=== PATIENT | female | born 1940 | race Caucasian/White ===

== ENCOUNTER 2018-01-19 08:05 | Emergency (ER) | payer OTHER, BC ==
[2018-01-19 08:10] VITALS: BP 136/84
--- NOTE | 2018-01-19 08:18 | EDPHY ---
H & P Stated Complaint: Fell while walking, injury to face. Time Seen by Provider: 01/19/18 08:11 HPI/ROS: CHIEF COMPLAINT: Mechanical fall, headache, nasal injury, anticoagulated HISTORY OF PRESENT ILLNESS: The patient presents to the ED after she sustained a mechanical fall walking out of her gym today. The patient fell forward. She was able to brace her fall with her elbows but unfortunately struck her nose and head. She denies any loss of consciousness. She does complain of a mild frontal headache, nasal tenderness, swelling and slight deformity. The patient denies any associated neck pain, numbness, weakness, abdominal pain, difficulty breathing or additional traumatic complaints. The patient is anticoagulated for a hypercoagulable state. REVIEW OF SYSTEMS: A comprehensive 10 point review of systems is otherwise negative aside from elements mentioned in the history of present illness. Source: Patient Exam Limitations: No limitations - Personal History Current Tetanus Diphtheria and Acellular Pertussis (TDAP): Yes - Medical/Surgical History Hx Asthma: No Hx Chronic Respiratory Disease: No Hx Diabetes: No Hx Cardiac Disease: No Hx Renal Disease: No Hx Cirrhosis: No Hx Alcoholism: No Hx HIV/AIDS: No Hx Splenectomy or Spleen Trauma: No Other PMH: Protein blood defficiency, on coumadin. Vertigo. - Social History Smoking Status: Never smoked - Physical Exam Exam: General Appearance: Alert, no distress Head: Ecchymosis, tenderness and swelling noted to nasal bridge Eyes: Pupils equal, round, reactive ENT, Mouth: No hemotympanum, no oral trauma Neck: Nontender, trachea midline Respiratory: No chest wall tender, no subcutaneous air, lungs clear bilaterally Cardiovascular: Regular rate and rhythm Abdomen: Abdomen is soft and nontender, pelvis stable Skin: No lacerations, No abrasion Back: No midline T/L/S pain Extremities: Nontender, full range of motion Neurological: A&Ox3, normal motor function, normal sensory exam Constitutional: Initial Vital Signs Temperature (C) 36.6 C 01/19/18 08:06 Heart Rate 75 01/19/18 08:06 Respiratory Rate 18 01/19/18 08:06 Blood Pressure 136/84 H 01/19/18 08:06 O2 Sat (%) 96 01/19/18 08:06 O2 Delivery Mode Room Air Allergies/Adverse Reactions: Sulfa (Sulfonamide Antibiotics) Allergy (Verified 01/19/18 08:10) Home Medications: Medication Instructions Recorded Coumadin 01/19/18 Medical Decision Making - Diagnostics Imaging Results: Imaging Impressions Head CT 01/19/18 08:15 Impression: Bilateral nasal fractures. Normal brain parenchyma without evidence for hemorrhage. Results called to Dr. Gary Caballero at 8:55 AM. General information for patients regarding this examination can be found at [email or web address] If you have questions or comments about this report, please contact me at (hospital) or [phone] (cell). ED Course/Re-evaluation: I have cleared the patient's C-spine via nexus criteria. The patient presents to the ED with an obvious nasal fracture. There is no septal hematoma. Given the patient's age, complaints of headache and current anticoagulation status a CT scan of the head was ordered. CT scan demonstrates no evidence of intracranial hemorrhage or significant facial bone fracture. She does have a nasal fracture. The patient will be discharged home with instructions to follow up with our on- call Ear Nose Throat physician. She is also advised to return to the ED for the development of any severe headache, neurologic symptoms, vomiting or other concerns. Differential Diagnosis: Differential diagnosis considered includes intracranial hemorrhage, facial bone fracture, nasal fracture, spinal injury Departure - Departure Disposition: Home, Routine, Self-Care Clinical Impression: Nasal fracture, Fall, Facial contusion, Anticoagulated Condition: Good Instructions: Nasal Fracture (ED) Additional Instructions: 1. Your head CT scan demonstrates no evidence of intracranial bleeding but does demonstrate a nasal fracture. 2. Return to the ED for any severe headache, numbness, weakness, vomiting or other concerns. 3. Please schedule a follow-up appointment with Dr. Nathalia Larson from ENT for evaluation of your nasal fracture. Please contact her office today to schedule that follow-up visit for next week. Referrals: Giselle Adame MD [Primary Care Provider] - As per Instructions Nathalia Larson MD [Medical Doctor] - As per Instructions
== END 2018-01-19 09:12 | disposition home or self-care (01) ==
DX: S02.2XXA Fracture of nasal bones, initial encounter for closed fracture (principal); S00.83XA Contusion of other part of head, initial encounter; W18.39XA Other fall on same level, initial encounter; Y92.59 Other trade areas as the place of occurrence of the external cause; Z79.01 Long term (current) use of anticoagulants

== ENCOUNTER 2018-04-11 02:28 | Observation (INO) | payer OTHER, BC ==
[2018-04-11] MEDS ORDERED: ONDANSETRON 4 MG/2 ML VIAL IVP ONE ×2 (02:38→04:03)
[2018-04-11] MEDS ORDERED: NS 1,000 ML IV ONE ×2 (02:38→04:28)
--- NOTE | 2018-04-11 02:47 | EDPHY ---
H & P Stated Complaint: NV-abd pain Time Seen by Provider: 04/11/18 02:45 HPI/ROS: HPI CHIEF COMPLAINT: Nausea, vomiting, abdominal pain. HISTORY OF PRESENT ILLNESS: 77-year-old female, history of protein S deficiency on Coumadin, presents emergency room with nausea vomiting and abdominal cramping without diarrhea that started around 10:00 p.m.. She vomited multiple times. Nonbloody. Patient denies any chest pain or shortness of breath. Main complaint abdominal cramps with nausea and vomiting. Addition complains of a frontal throbbing headache she states started after she vomited multiple times. No fever. She had the same meal with her and daughter. They are not sick. She drove back from [employer] but [employer] arriving back home around 9:00 p.m. Around 10:00 p.m. She got sick. Is now 245 in the morning and she arrives to the emergency room with ongoing nausea vomiting. Past Medical History: Protein S deficiency on Coumadin Past Surgical History: Denies recent surgery Social History: Denies drugs alcohol tobacco. Family History: Noncontributory ROS REVIEW OF SYSTEMS: 10 Systems were reviewed and negative with the exception of the elements mentioned in the history of present illness. Exam Constitutional elderly, nontoxic, actively vomiting, triage nursing summary reviewed, vital signs reviewed, awake/alert. Eyes normal conjunctivae and sclera, EOMI, PERRLA. HENT normal inspection, atraumatic, moist mucus membranes, no epistaxis, neck supple/ no meningismus, no raccoon eyes. Respiratory clear to auscultation bilaterally, normal breath sounds, no respiratory distress, no wheezing. Cardiovascular rate normal, regular rhythm, no murmur, no edema, distal pulses normal. Gastrointestinal actively vomiting, soft, non-tender, no rebound, no guarding, normal bowel sounds, no distension, no pulsatile mass. Genitourinary no CVA tenderness. Musculoskeletal no midline vertebral tenderness, full range of motion, no calf swelling, no tenderness of extremities, no meningismus, good pulses, neurovascularly intact. Skin pink, warm, & dry, no rash, skin atraumatic. Neurologic awake, alert and oriented x 3, AAOx3, moves all 4 extremities equally, motor intact, sensory intact, CN II-XII intact, normal cerebellar, normal vision, normal speech. Psychiatric normal mood/affect. Heme/Lymph/Immune no lymphadenopathy. Differential Diagnosis: Differential diagnosis includes but is not limited to and in no particular order: Bowel obstruction, appendicitis, gallbladder disease, diverticulitis, colitis, enteritis, perforated viscus, gastritis, GERD , esophagitis, urinary tract infection, pyelonephritis, kidney stones Medical Decision Making: Plan for this patient IV establishment IV fluid bolus , Zofran for nausea, basic blood work, lactic acid, troponin, EKG. Re-evaluate. Re-evaluation: EKG interpretation by me on record in [facility] system. Impression time of EKG 3:34 a.m., sinus rhythm rate of 69 T-wave abnormality V1 V2 otherwise no acute ischemic change. CT scan head without contrast negative for acute bleed called to me by Dr. Brown. Indication for CT scan vomiting and headache. CT scan abdomen pelvis with IV contrast shows gallbladder wall fluid, and gallstones but otherwise no bowel obstruction or free fluid. Ultrasound shows gallstones, CBD is normal in size. Gallbladder wall is thickened at 3 mm. No sonographic Childers sign. Dr. Dumont consult with the hospitalist service for admission. Reason for admission nausea and vomiting. Source: Patient - Personal History Current Tetanus Diphtheria and Acellular Pertussis (TDAP): Yes - Medical/Surgical History Hx Asthma: No Hx Chronic Respiratory Disease: No Hx Diabetes: No Hx Cardiac Disease: No Hx Renal Disease: No Hx Cirrhosis: No Hx Alcoholism: No Hx HIV/AIDS: No Hx Splenectomy or Spleen Trauma: No Other PMH: Protein blood defficiency, on coumadin. Vertigo. - Social History Smoking Status: Never smoked Constitutional: Initial Vital Signs Temperature (C) 36.5 C 04/11/18 02:36 Heart Rate 83 04/11/18 02:36 Respiratory Rate 16 04/11/18 02:36 Blood Pressure 164/81 H 04/11/18 02:36 O2 Sat (%) 98 04/11/18 02:36 O2 Delivery Mode Room Air Allergies/Adverse Reactions: Sulfa (Sulfonamide Antibiotics) Allergy (Verified 04/11/18 08:18) Rash Home Medications: Medication Instructions Recorded Warfarin Sodium [Coumadin 5MG (*)] 5 mg PO SUMOTUTHFRSA@21 01/19/18 Acetaminophen [Tylenol ES 500 mg 500 mg PO Q6 PRN 04/11/18 (*)] Rosuvastatin Calcium [Crestor] 2.5 mg PO HS 04/11/18 Warfarin Sodium [Coumadin 2.5MG 2.5 mg PO WE@21 04/11/18 (*)] Medical Decision Making - Diagnostics Imaging Results: Imaging Impressions Abdomen CT 04/11/18 03:24 Impression: 1. Cholelithiasis with minimal pericholecystic fluid. 2. Constipation without bowel obstruction or diverticulitis. 3. 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 4. Small hiatal hernia. 5. 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 Findings and recommendations discussed with Emergency Department physician, Randell Coats MD, at 0425 hours, 04/11/2018. Final report concurs with initial preliminary interpretation. Head CT 04/11/18 03:24 Impression: 1. Moderate atrophy. 2. No acute hemorrhage, hydrocephalus, or mass effect. 3. No sinusitis. 4. No definite acute infarct. 5. Moderate microvascular ischemic gliosis. 6. Consider MRI of the brain, if there is continued clinical concern. Findings and recommendations discussed with Emergency Department physician, Randell Coats MD, at 0420 hours, 04/11/2018. Final report concurs with initial preliminary interpretation. Abdomen Ultrasound 04/11/18 05:14 Impression: 1. Cholelithiasis with a few small gallstones, mild borderline gallbladder wall thickening of 3 mm, and minimal pericholecystic fluid. Please correlate for acute versus chronic cholecystitis. 2. No biliary ductal dilation. Findings and recommendations discussed with Emergency Department physician, Randell Coats MD, at 0600 hours, 04/11/2018. Final report concurs with initial preliminary interpretation. - Data Points Laboratory Results: Laboratory Results 04/11/18 02:40 04/11/18 02:40 Medications Given: Discontinued Medications Acetaminophen (Tylenol) 1,000 mg PO EDNOW ONE Stop: 04/11/18 04:39 Last Admin: 04/11/18 04:40 Dose: 1,000 mg Sodium Chloride (Ns) 1,000 mls @ 0 mls/hr IV EDNOW ONE; Wide Open PRN Reason: Protocol Stop: 04/11/18 02:39 Last Admin: 04/11/18 02:47 Dose: 1,000 mls Sodium Chloride (Ns) 1,000 mls @ 0 mls/hr IV EDNOW ONE; Wide Open PRN Reason: Protocol Stop: 04/11/18 04:29 Last Admin: 04/11/18 04:29 Dose: 1,000 mls Sodium Chloride (Ns) 1,000 mls @ 125 mls/hr IV CONT CHARLEE Stop: 10/08/18 07:59 Last Admin: 04/11/18 09:26 Dose: 1,000 mls Ondansetron HCl (Zofran) 4 mg IVP EDNOW ONE Stop: 04/11/18 02:39 Last Admin: 04/11/18 02:47 Dose: 4 mg Ondansetron HCl (Zofran) 4 mg IVP EDNOW ONE Stop: 04/11/18 04:04 Last Admin: 04/11/18 04:05 Dose: 4 mg Promethazine HCl (Phenergan) 6.25 mg IVP ONCE ONE Stop: 04/11/18 05:16 Last Admin: 04/11/18 05:55 Dose: 6.25 mg Point of Care Test Results: Chemistry 04/11/18 03:02 POC Troponin I 0.00 ng/mL ng/mL (0.00-0.08) Departure - Departure Disposition: [facility] Clinical Impression: Vomiting Qualifiers: Vomiting type: unspecified Vomiting Intractability: non-intractable Nausea presence: with nausea Qualified Code(s): R11.2 - Nausea with vomiting, unspecified Condition: Fair
[2018-04-11 02:53] LABS: PLATELET COUNT 202 10^3/uL (150-400)
[2018-04-11 03:01] LABS: INR 2.25 (0.83-1.16); PROTIME(PATIENT) 24.9 SEC (12.0-15.0)
[2018-04-11] MEDS ORDERED: IOPAMIDOL (ISOVUE 370) 100 ML BTL IV ONE (03:26)
[2018-04-11] MEDS ORDERED: ACETAMINOPHEN 500 MG TAB PO ONE (04:38)
[2018-04-11] MEDS ORDERED: PROMETHAZINE HCL 25 MG/ML INJ IVP ONE (05:15)
[2018-04-11] MEDS ORDERED: PROMETHAZINE HCL 25 MG/ML INJ IVP PRN (07:56)
[2018-04-11] MEDS ORDERED: ONDANSETRON 4 MG/2 ML VIAL IVP PRN (07:56)
[2018-04-11] MEDS ORDERED: ONDANSETRON DISINTEGRATING 4 MG TAB PO PRN (07:56)
[2018-04-11] MEDS ORDERED: ACETAMINOPHEN 325 MG TAB PO PRN (07:56)
[2018-04-11] MEDS ORDERED: NS 1,000 ML IV SCH (08:00)
--- NOTE | 2018-04-11 08:52 | GHP ---
DATE OF ADMISSION: 04/11/2018 The patient is a 77-year-old female with a history of protein S deficiency on chronic warfarin, who p resents with vomiting. She was in her usual state of health. She returned from [facility] she was visiting with her daughter yesterday. She arrived home at 9:00 p.m. and 10:00 p.m. she h ad multiple episodes of vomiting. No blood. No coffee-ground. She has actually been a little bit c onstipated. She does have some chronic constipation. She was not with grandchildren. No one around her has been sick. They did eat at 1 restaurant. She has not had fever, chills or sputum. REVIEW OF SYSTEMS: Complete 10-point review of systems conducted, negative except as noted in the HP I. PAST MEDICAL HISTORY: Protein S deficiency with clotting event about 20 years ago on warfarin since. ALLERGIES: Sulfa. HOME MEDICATIONS: Warfarin and a statin of uncertain specificity. SOCIAL HISTORY: She says a couple of glasses of wine a week. Lived in [place] for a long time. FAMILY HISTORY: Parents . PHYSICAL EXAMINATION: VITAL SIGNS: Temperature 36.5, blood pressure 164/81, pulse 83, breathing 16 t imes a minute, 98% on room air. GENERAL: No acute distress. HEENT: Sclerae anicteric. Oropharynx cl ear. Mucous membranes moist. NECK: Supple. No lymphadenopathy or JVD. LUNGS: Clear to auscultat ion bilaterally. HEART: S1, S2. ABDOMEN: Soft, mildly distended. Bowel sounds are present, but hy poactive with no rebound or guarding. LOWER EXTREMITIES: No edema. Calves nontender. SKIN: Witho ut rash. NEUROLOGIC: Nonfocal. LABORATORY DATA: White count 10, hematocrit 45, platelets are 202,000, INR is 2.25. Sodium 137, pot assium 4.3, chloride 106, bicarb 22, BUN 15, creatinine 0.6, glucose 166. LFTs normal. Troponin 0. Lipase normal. Urinalysis is unremarkable. Abdominal CT showed some thickened gallbladder with a n ephrolithiasis but otherwise relatively unremarkable. I have reviewed and interpreted the images [facility]. Noncontrast head CT is unremarkable. Abdominal ultrasound shows some thickened gallbladder wall with out clear evidence of cholecystitis. I discussed the case with Dr. Randell MacDade. ASSESSMENT/PLAN: A 77-year-old female with likely viral gastroenteritis. 1. Viral gastroenteritis. Supportive care. GI pathogen panel has been sent. IV fluids and antieme tics. 2. Query cholecystitis. I think in the setting of normal LFTs and with the prevalence of viral illn esses this day, this is more likely to be the etiology. I will hold on further evaluation of her gal lbladder. 3. Protein S deficiency. INR therapeutic. Continue her warfarin. DISPOSITION: Observation status. /[id number]/MODL
[2018-04-11 09:14] VITALS: BP 127/60
--- NOTE | 2018-04-11 16:48 | PDDCSUM ---
Discharge Summary Discharge Summary: Date of Admission: 04/11/2018 Date of Discharge: 04/11/2018 Consults: N/A Followup: PCP Hospital Course Problem List: Viral Gastroenteritis - Symptoms improved throughout the day with the patient able to tolerate PO w/o nausea/vomiting - S/p supportive care with IVF, anti-emetics Cholecystitis? - Abdominal CT on admission showing cholelithiasis with minimal pericholecystic fluid - Abd U/S on admission showing cholelithiasis with a few small gallstones, mild borderline galbladder wall thickening of 3 mm, and minimal pericholecystic fluid - Given lack of LFT elevations, concern for cholecystitis is low, recommended f/ u with PCP for further evaluation if symptoms recur or persist Time spent on discharge was >35 minutes with >50% of time spent on patient education and counseling.
== END 2018-04-11 15:51 | disposition home or self-care (01) ==
LOC: F3E 09:03
PROVIDERS: ADMIT Internal Medicine; ATTEND Internal Medicine
DX: A08.4 Viral intestinal infection, unspecified (principal); K80.20 Calculus of gallbladder without cholecystitis without obstruction; D68.59 Other primary thrombophilia; Z79.01 Long term (current) use of anticoagulants
CPT/HCPCS: 70450; 74177; 76705; 96361; 96374; 96375; 96376; 99285; G0378; J2405; J2550; Q9967; 84484-ER

== ENCOUNTER → 2018-07-05 | Outpatient (CLI) | payer OTHER, BC | LOC: FIMAGING 12:55 | PROVIDERS: ATTEND Internal Medicine | DX: Z12.31 Encounter for screening mammogram for malignant neoplasm of breast (principal) ==